=== PATIENT | male | born 1995 | race Caucasian/White ===

== ENCOUNTER 2018-05-14 16:51 | Emergency (ER) | payer MEDICAID, OTHER ==
[~2018-05-14] VITALS: Ht 177.8 cm; Wt 71.0 kg
[2018-05-14 17:07] VITALS: BP 141/73
== END 2018-05-14 23:39 | disposition left against medical advice (07) ==
LOC: ER 16:52
DX: N50.819 Testicular pain, unspecified (principal); Z53.21 Procedure and treatment not carried out due to patient leaving prior to being seen by health care provider

== ENCOUNTER 2023-04-25 15:12 | Outpatient (CLI) | payer MEDICAID | END 2023-04-25 23:59 | disposition home or self-care (01) | LOC: RAD 15:12 | PROVIDERS: ATTEND Physician Assistant | DX: F11.20 Opioid dependence, uncomplicated (principal) | CPT/HCPCS: 93005 ==